=== PATIENT | male | born 1955 | race Hispanic/Latino ===

== ENCOUNTER 2017-02-23 17:42 | Emergency (ER) | payer OTHER ==
[2017-02-23 19:19] LABS: Basophils % (Auto) 0.7 % (0.0-1.8); Eosinophils % (Auto) 1.3 % (0.0-4.3); Hematocrit 47.8 % (35.5-45.6); Hemoglobin 16.1 gm/dl (11.8-15.2); Mean Corpuscular HGB Conc 34 % (32-34); Mean Corpuscular Hemoglobin 32 pg (28-32); Mean Corpuscular Volume 96 fl (84-94); Platelet Count 212 K/mm3 (140-440); Red Blood Count 4.99 M/mm3 (3.65-5.03); Red Cell Distribution Width 13.9 % (13.2-15.2); White Blood Count 7.9 K/mm3 (4.5-11.0)
[2017-02-23 19:43] LABS: Alanine Aminotransferase 26 units/L (7-56); Albumin 3.8 g/dL (3.9-5); Alkaline Phosphatase 84 units/L (35-129); Anion Gap 24 mmol/L; BUN/Creatinine Ratio 5; Blood Urea Nitrogen 3 mg/dL (9-20); Calcium 8.7 mg/dL (8.4-10.2); Carbon Dioxide 20 mmol/L (22-30); Chloride 94.5 mmol/L (98-107); Glucose 92 mg/dL (75-100); Potassium 3.6 mmol/L (3.6-5.0); Sodium 135 mmol/L (137-145); Total Protein 7.5 g/dL (6.3-8.2)
[2017-02-23] MEDS ORDERED: NACL 0.9% 1000 ML 1,000 ML IV ONE ×2 (20:19→22:56)
--- NOTE | 2017-02-23 20:23 | Emergency Department Report ---
ED Altered Mental Status HPI - General Chief Complaint: Altered Mental Status Stated Complaint: ETOH Time Seen by Provider: 02/23/17 20:13 Source: EMS Mode of arrival: Ambulatory Limitations: Altered Mental Status - History of Present Illness Initial Comments: Patient is 61 years old male brought by EMS as an altered mental status, patient had history of alcohol abuse and drug abuse. Patient brought from home. Patient has similar presentation last year. Unable to get more history due to patient altered mental status. MD Complaint: altered mental status, confusion, decreased responsiveness, intoxication -: unknown Severity: moderate Context: alcohol abuse, drug abuse, history of similar presen Associated Symptoms: denies other symptoms - Related Data Home Medications Medication Instructions Recorded Confirmed Last Taken No Known Home Medications [No 12/24/15 12/24/15 Unknown Reported Home Medications] Allergies Allergy/AdvReac Type Severity Reaction Status Date / Time No Known Allergies Allergy Verified 12/23/15 17:27 ED Review of Systems ROS: Stated complaint: ETOH Other details as noted in HPI Comment: Unobtainable due to pts medical conditions ED Past Medical Hx - Past Medical History Previous Medical History?: Yes Hx Hypertension: Yes Additional medical history: unknown - Surgical History Past Surgical History?: No Additional Surgical History: unknown - Social History Smoking Status: Unknown if ever smoked Substance Use Type: Alcohol - Medications Home Medications: Home Medications Medication Instructions Recorded Confirmed Last Taken Type No Known Home Medications [No 12/24/15 12/24/15 Unknown History Reported Home Medications] ED Physical Exam - General Limitations: Altered Mental Status General appearance: appears intoxicated, obtunded - Head Head exam: Present: atraumatic, normocephalic, normal inspection - Eye Eye exam: Present: normal appearance, PERRL Pupils: Present: normal accommodation - ENT ENT exam: Present: normal exam, mucous membranes dry, mucous membranes moist - Neck Neck exam: Present: normal inspection, full ROM. Absent: tenderness, meningismus, lymphadenopathy, thyromegaly - Respiratory Respiratory exam: Present: normal lung sounds bilaterally. Absent: respiratory distress, wheezes, rales, rhonchi, stridor, chest wall tenderness, accessory muscle use, decreased breath sounds, prolonged expiratory - Cardiovascular Cardiovascular Exam: Present: regular rate, normal rhythm, normal heart sounds - GI/Abdominal GI/Abdominal exam: Present: soft, normal bowel sounds. Absent: distended, tenderness, guarding, rebound, rigid, organomegaly, mass, bruit, pulsatile mass , hernia - Extremities Exam Extremities exam: Present: normal inspection, full ROM, normal capillary refill - Back Exam Back exam: Present: normal inspection, full ROM. Absent: tenderness, CVA tenderness (R), CVA tenderness (L) - Neurological Exam Neurological exam: Present: altered, CN II-XII intact, reflexes normal - Skin Skin exam: Present: warm, dry, intact ED Course Vital Signs 02/23/17 02/23/17 02/23/17 17:56 18:20 18:28 Temperature 98.4 F Pulse Rate 89 106 H Respiratory 20 18 Rate Blood Pressure 142/97 Blood Pressure [Right] O2 Sat by Pulse 96 100 Oximetry 02/23/17 02/23/17 02/23/17 18:30 18:45 18:52 Temperature 98.4 F Pulse Rate 95 H 89 91 H Respiratory 29 H 25 H 18 Rate Blood Pressure 127/75 127/75 Blood Pressure 139/85 [Right] O2 Sat by Pulse 92 76 L Oximetry 02/23/17 02/23/17 02/23/17 19:00 19:15 19:30 Temperature Pulse Rate 84 75 71 Respiratory 22 16 17 Rate Blood Pressure 136/85 127/75 140/95 Blood Pressure [Right] O2 Sat by Pulse Oximetry 02/23/17 02/23/17 19:45 20:12 Temperature Pulse Rate 73 79 Respiratory 16 Rate Blood Pressure 140/95 Blood Pressure [Right] O2 Sat by Pulse Oximetry - Lab Data Result diagrams: 02/23/17 19:07 02/23/17 19:07 Lab Results 02/23/17 02/23/17 02/23/17 Range/Units 19:07 19:07 19:07 WBC 7.9 (4.5-11.0) K/mm3 RBC 4.99 (3.65-5.03) M/mm3 Hgb 16.1 H (11.8-15.2) gm/dl Hct 47.8 H (35.5-45.6) % MCV 96 H (84-94) fl MCH 32 (28-32) pg MCHC 34 (32-34) % RDW 13.9 (13.2-15.2) % Plt Count 212 (140-440) K/mm3 Lymph % (Auto) 31.7 (13.4-35.0) % Emery % (Auto) 13.9 H (0.0-7.3) % Eos % (Auto) 1.3 (0.0-4.3) % Baso % (Auto) 0.7 (0.0-1.8) % Lymph # 2.5 (1.2-5.4) K/mm3 Emery # 1.1 H (0.0-0.8) K/mm3 Eos # 0.1 (0.0-0.4) K/mm3 Baso # 0.1 (0.0-0.1) K/mm3 Seg Neutrophils % 52.4 (40.0-70.0) % Seg Neutrophils # 4.1 (1.8-7.7) K/mm3 Sodium 135 L (137-145) mmol/L Potassium 3.6 (3.6-5.0) mmol/L Chloride 94.5 L (98-107) mmol/L Carbon Dioxide 20 L (22-30) mmol/L Anion Gap 24 mmol/L BUN 3 L (9-20) mg/dL Creatinine 0.6 L (0.8-1.5) mg/dL Estimated GFR > 60 ml/min BUN/Creatinine Ratio 5 % Glucose 92 (75-100) mg/dL POC Glucose (70-105) Lactic Acid 3.30 H* (0.7-2.0) mmol/L Calcium 8.7 (8.4-10.2) mg/dL Magnesium 2.20 (1.7-2.3) mg/dL Total Bilirubin 0.30 (0.1-1.2) mg/dL AST 45 H (5-40) units/L ALT 26 (7-56) units/L Alkaline Phosphatase 84 (35-129) units/L Total Protein 7.5 (6.3-8.2) g/dL Albumin 3.8 L (3.9-5) g/dL Albumin/Globulin Ratio 1.0 % TSH (0.270-4.200) mlU/mL Urine Color (Yellow) Urine Turbidity (Clear) Urine pH (5.0-7.0) Ur Specific [place] (1.003-1.030) Urine Protein (Negative) mg/dL Urine Glucose (UA) (Negative) mg/dL Urine Ketones (Negative) mg/dL Urine Blood (Negative) Urine Nitrite (Negative) Urine Bilirubin (Negative) Urine Urobilinogen (<2.0) mg/dL Ur Leukocyte Esterase (Negative) Urine WBC (Auto) (0.0-6.0) /HPF Urine RBC (Auto) (0.0-6.0) /HPF Urine Bacteria (Auto) (Negative) /HPF Hyaline Casts /LPF Salicylates (2.8-20.0) mg/dL Urine Opiates Screen Urine Methadone Screen Acetaminophen (10.0-30.0) ug/mL Ur Barbiturates Screen Ur Phencyclidine Scrn Ur Amphetamines Screen U Benzodiazepines Scrn Urine Cocaine Screen U Marijuana (THC) Screen Drugs of Abuse Note Plasma/Serum Alcohol (0-0.07) gm% 02/23/17 02/23/17 02/23/17 Range/Units 19:07 19:07 19:07 WBC (4.5-11.0) K/mm3 RBC (3.65-5.03) M/mm3 Hgb (11.8-15.2) gm/dl Hct (35.5-45.6) % MCV (84-94) fl MCH (28-32) pg MCHC (32-34) % RDW (13.2-15.2) % Plt Count (140-440) K/mm3 Lymph % (Auto) (13.4-35.0) % Emery % (Auto) (0.0-7.3) % Eos % (Auto) (0.0-4.3) % Baso % (Auto) (0.0-1.8) % Lymph # (1.2-5.4) K/mm3 Emery # (0.0-0.8) K/mm3 Eos # (0.0-0.4) K/mm3 Baso # (0.0-0.1) K/mm3 Seg Neutrophils % (40.0-70.0) % Seg Neutrophils # (1.8-7.7) K/mm3 Sodium (137-145) mmol/L Potassium (3.6-5.0) mmol/L Chloride (98-107) mmol/L Carbon Dioxide (22-30) mmol/L Anion Gap mmol/L BUN (9-20) mg/dL Creatinine (0.8-1.5) mg/dL Estimated GFR ml/min BUN/Creatinine Ratio % Glucose (75-100) mg/dL POC Glucose (70-105) Lactic Acid (0.7-2.0) mmol/L Calcium (8.4-10.2) mg/dL Magnesium (1.7-2.3) mg/dL Total Bilirubin (0.1-1.2) mg/dL AST (5-40) units/L ALT (7-56) units/L Alkaline Phosphatase (35-129) units/L Total Protein (6.3-8.2) g/dL Albumin (3.9-5) g/dL Albumin/Globulin Ratio % TSH 1.260 (0.270-4.200) mlU/mL Urine Color (Yellow) Urine Turbidity (Clear) Urine pH (5.0-7.0) Ur Specific [place] (1.003-1.030) Urine Protein (Negative) mg/dL Urine Glucose (UA) (Negative) mg/dL Urine Ketones (Negative) mg/dL Urine Blood (Negative) Urine Nitrite (Negative) Urine Bilirubin (Negative) Urine Urobilinogen (<2.0) mg/dL Ur Leukocyte Esterase (Negative) Urine WBC (Auto) (0.0-6.0) /HPF Urine RBC (Auto) (0.0-6.0) /HPF Urine Bacteria (Auto) (Negative) /HPF Hyaline Casts /LPF Salicylates < 0.3 L (2.8-20.0) mg/dL Urine Opiates Screen Urine Methadone Screen Acetaminophen < 15.0 (10.0-30.0) ug/mL Ur Barbiturates Screen Ur Phencyclidine Scrn Ur Amphetamines Screen U Benzodiazepines Scrn Urine Cocaine Screen U Marijuana (THC) Screen Drugs of Abuse Note Plasma/Serum Alcohol (0-0.07) gm% 02/23/17 02/23/17 02/23/17 Range/Units 19:07 20:42 20:42 WBC (4.5-11.0) K/mm3 RBC (3.65-5.03) M/mm3 Hgb (11.8-15.2) gm/dl Hct (35.5-45.6) % MCV (84-94) fl MCH (28-32) pg MCHC (32-34) % RDW (13.2-15.2) % Plt Count (140-440) K/mm3 Lymph % (Auto) (13.4-35.0) % Emery % (Auto) (0.0-7.3) % Eos % (Auto) (0.0-4.3) % Baso % (Auto) (0.0-1.8) % Lymph # (1.2-5.4) K/mm3 Emery # (0.0-0.8) K/mm3 Eos # (0.0-0.4) K/mm3 Baso # (0.0-0.1) K/mm3 Seg Neutrophils % (40.0-70.0) % Seg Neutrophils # (1.8-7.7) K/mm3 Sodium (137-145) mmol/L Potassium (3.6-5.0) mmol/L Chloride (98-107) mmol/L Carbon Dioxide (22-30) mmol/L Anion Gap mmol/L BUN (9-20) mg/dL Creatinine (0.8-1.5) mg/dL Estimated GFR ml/min BUN/Creatinine Ratio % Glucose (75-100) mg/dL POC Glucose (70-105) Lactic Acid (0.7-2.0) mmol/L Calcium (8.4-10.2) mg/dL Magnesium (1.7-2.3) mg/dL Total Bilirubin (0.1-1.2) mg/dL AST (5-40) units/L ALT (7-56) units/L Alkaline Phosphatase (35-129) units/L Total Protein (6.3-8.2) g/dL Albumin (3.9-5) g/dL Albumin/Globulin Ratio % TSH (0.270-4.200) mlU/mL Urine Color Yellow (Yellow) Urine Turbidity Clear (Clear) Urine pH 6.0 (5.0-7.0) Ur Specific [place] 1.004 (1.003-1.030) Urine Protein 100 mg/dl (Negative) mg/dL Urine Glucose (UA) Neg (Negative) mg/dL Urine Ketones Neg (Negative) mg/dL Urine Blood Sm (Negative) Urine Nitrite Neg (Negative) Urine Bilirubin Neg (Negative) Urine Urobilinogen < 2.0 (<2.0) mg/dL Ur Leukocyte Esterase Neg (Negative) Urine WBC (Auto) 1.0 (0.0-6.0) /HPF Urine RBC (Auto) 1.0 (0.0-6.0) /HPF Urine Bacteria (Auto) 1+ (Negative) /HPF Hyaline Casts 1 /LPF Salicylates (2.8-20.0) mg/dL Urine Opiates Screen Presumptive negative Urine Methadone Screen Presumptive negative Acetaminophen (10.0-30.0) ug/mL Ur Barbiturates Screen Presumptive negative Ur Phencyclidine Scrn Presumptive negative Ur Amphetamines Screen Presumptive negative U Benzodiazepines Scrn Presumptive positive Urine Cocaine Screen Presumptive negative U Marijuana (THC) Screen Presumptive negative Drugs of Abuse Note Disclamer Plasma/Serum Alcohol 0.41 H (0-0.07) gm% 02/23/17 02/23/17 Range/Units 20:56 21:58 WBC (4.5-11.0) K/mm3 RBC (3.65-5.03) M/mm3 Hgb (11.8-15.2) gm/dl Hct (35.5-45.6) % MCV (84-94) fl MCH (28-32) pg MCHC (32-34) % RDW (13.2-15.2) % Plt Count (140-440) K/mm3 Lymph % (Auto) (13.4-35.0) % Emery % (Auto) (0.0-7.3) % Eos % (Auto) (0.0-4.3) % Baso % (Auto) (0.0-1.8) % Lymph # (1.2-5.4) K/mm3 Emery # (0.0-0.8) K/mm3 Eos # (0.0-0.4) K/mm3 Baso # (0.0-0.1) K/mm3 Seg Neutrophils % (40.0-70.0) % Seg Neutrophils # (1.8-7.7) K/mm3 Sodium (137-145) mmol/L Potassium (3.6-5.0) mmol/L Chloride (98-107) mmol/L Carbon Dioxide (22-30) mmol/L Anion Gap mmol/L BUN (9-20) mg/dL Creatinine (0.8-1.5) mg/dL Estimated GFR ml/min BUN/Creatinine Ratio % Glucose (75-100) mg/dL POC Glucose 79 (70-105) Lactic Acid 3.20 H* (0.7-2.0) mmol/L Calcium (8.4-10.2) mg/dL Magnesium (1.7-2.3) mg/dL Total Bilirubin (0.1-1.2) mg/dL AST (5-40) units/L ALT (7-56) units/L Alkaline Phosphatase (35-129) units/L Total Protein (6.3-8.2) g/dL Albumin (3.9-5) g/dL Albumin/Globulin Ratio % TSH (0.270-4.200) mlU/mL Urine Color (Yellow) Urine Turbidity (Clear) Urine pH (5.0-7.0) Ur Specific [place] (1.003-1.030) Urine Protein (Negative) mg/dL Urine Glucose (UA) (Negative) mg/dL Urine Ketones (Negative) mg/dL Urine Blood (Negative) Urine Nitrite (Negative) Urine Bilirubin (Negative) Urine Urobilinogen (<2.0) mg/dL Ur Leukocyte Esterase (Negative) Urine WBC (Auto) (0.0-6.0) /HPF Urine RBC (Auto) (0.0-6.0) /HPF Urine Bacteria (Auto) (Negative) /HPF Hyaline Casts /LPF Salicylates (2.8-20.0) mg/dL Urine Opiates Screen Urine Methadone Screen Acetaminophen (10.0-30.0) ug/mL Ur Barbiturates Screen Ur Phencyclidine Scrn Ur Amphetamines Screen U Benzodiazepines Scrn Urine Cocaine Screen U Marijuana (THC) Screen Drugs of Abuse Note Plasma/Serum Alcohol (0-0.07) gm% - EKG Data -: EKG Interpreted by Me Interpretation: no acute changes - Radiology Data Radiology results: report reviewed Referring Physician: TOI PRESTON Patient Name: JUAN MONTERO Date of : 1955 Sex: Male Report Date: 2017-02-23 Report Status: Finalized Findings [facility] [address] [place] [address] Cat Scan Report Signed Patient: JUAN MONTERO MR#: [id number] : 1955 Acct:[id number] Age/Sex: 61 / M ADM Date: 02/23/17 Loc: ED Attending Dr: Ordering Physician: TOI PRESTON Date of Service: 02/23/17 Procedure(s): CT head/brain wo con Accession Number(s): [id number] cc: TOI PRESTON FINAL REPORT PROCEDURE: CT HEAD/BRAIN WO CON TECHNIQUE: Computerized tomography of the head was performed without contrast material. HISTORY: AMS COMPARISON: No prior studies are available for comparison. FINDINGS: Skull and scalp: Normal. Paranasal sinuses: Normal. Ventricles and subarachnoid spaces: There is mild central and cortical atrophy. There is no hydrocephalus or asymmetry.. Cerebrum: No evidence of hemorrhage, acute infarction or mass. There is chronic deep white matter ischemic gliosis. Cerebellum and brainstem: No evidence of hemorrhage, acute infarction or mass. Vasculature: There is calcified plaque in the cavernous internal carotid arteries.. Comments: None. IMPRESSION: There are chronic involutional changes. There is no hemorrhage, edema, mass, mass effect or midline shift. Transcribed By: CO Dictated By: HAYLEE GRAY MD Electronically Authenticated By: HAYLEE GRAY MD Signed Date/Time: 02/23/171818 DD/ 18 TD/TT: 02/23/171818 Critical care attestation.: If time is entered above; I have spent that time in minutes in the direct care of this critically ill patient, excluding procedure time. ED Disposition Clinical Impression: Altered mental status, Alcohol intoxication Disposition: DC-01 TO HOME OR SELFCARE Is pt being admited?: No Condition: Stable Referrals: PRIMARY CAREMD [Primary Care Provider] - 3-5 Days
[2017-02-23 20:47] LABS: Urine Drugs of Abuse Note Disclamer
[2017-02-23 20:59] LABS: Bacteria,Urine 1+ /HPF (Negative); Bilirubin,Urine NEG (Negative); Blood,Urine SM (Negative); Ketones,Urine NEG (Negative); Leukocyte Esterase,Urine NEG (Negative); Nitrite,Urine NEG (Negative); Urobilinogen,Urine < 2.0 mg/dL (<2.0)
--- NOTE | 2017-02-23 22:22 | Cat Scan Report ---
FINAL REPORT PROCEDURE: CT HEAD/BRAIN WO CON TECHNIQUE: Computerized tomography of the head was performed without contrast material. HISTORY: AMS COMPARISON: No prior studies are available for comparison. FINDINGS: Skull and scalp: Normal. Paranasal sinuses: Normal. Ventricles and subarachnoid spaces: There is mild central and cortical atrophy. There is no hydrocephalus or asymmetry.. Cerebrum: No evidence of hemorrhage, acute infarction or mass. There is chronic deep white matter ischemic gliosis. Cerebellum and brainstem: No evidence of hemorrhage, acute infarction or mass. Vasculature: There is calcified plaque in the cavernous internal carotid arteries.. Comments: None. IMPRESSION: There are chronic involutional changes. There is no hemorrhage, edema, mass, mass effect or midline shift.
[2017-02-24] MEDS ORDERED: NACL 0.9% 1000 ML 1,000 ML IV ONE (06:01)
[2017-02-24 07:53] VITALS: BP 157/93
== END 2017-02-24 09:27 | disposition home or self-care (01) ==
LOC: ED 17:42
DX: F10.129 Alcohol abuse with intoxication, unspecified (principal); R41.82 Altered mental status, unspecified; I10 Essential (primary) hypertension
CPT/HCPCS: 36415; 70450; 80053; 80307; 81001; 82140; 82962; 83735; 84443; 85025; 93005; 93010; 96360; 96361; 99285; G0480; J7030; 80320

== ENCOUNTER 2017-06-14 17:56 | Emergency (ER) | payer SELFPAY ==
--- NOTE | 2017-06-14 21:15 | Emergency Department Report ---
ED General Adult HPI - General Chief complaint: Skin/Abscess/Foreign Body Stated complaint: INSECT BITE Time Seen by Provider: 06/14/17 20:28 Source: patient, family Mode of arrival: Ambulatory Limitations: No Limitations - History of Present Illness Initial comments: Patient reported that he is insect bite to his left fifth and fourth finger causing tightness and swelling. He said this happened 2 weeks ago. He said he also needs a refill on medication which happens to be lorazepam he has empty bottle. Patient blood pressure was elevated at 169/119 and he has his Hyzaar with him which he says that he just took after his blood pressure was taken in triage. Denies any chest pain or shortness of breath. Denies any neck pain or stiffness. Denies any dizziness, headache or numbness or tingling to extremities. Denies any back pain or abdominal pain. Pain to fingers of left hand 9 out of 10 and a can. Forced movement better with rest. Over-the- counter pain medication taken without any relief. Patient said it's getting red and sore. Past medical history of hypertension and alcohol abuse which he said he does not drink alcohol anymore. Patient is on lorazepam because he says he cannot sleep and he has anxiety. Patient doctor is Dr. Jerardo Sousa. He said he ran out of lorazepam 5 days ago and has an appointment with Dr. Sousa but he is shaky and very anxious and would need something to help him. MD Complaint: insect bite to left hand, medication refill Onset/Timin -: week(s) Location: left, upper extremity (fourth and fifth digits of left hand) Radiation: non-radiation Severity scale (0 -10): 9 Quality: aching Consistency: intermittent Improves with: immobilization, rest Worsens with: movement Associated Symptoms: other (anxiety). denies: confusion, chest pain, cough, diaphoresis, fever/chills, headaches, loss of appetite, malaise, nausea/vomiting , rash, seizure, shortness of breath, syncope, weakness Treatments Prior to Arrival: NSAID - Related Data Previous Rx's Medication Instructions Recorded Last Taken Type Cephalexin [Keflex] 500 mg PO Q8H 7 Days #21 capsule 06/14/17 Unknown Rx LORazepam [Ativan] 1 mg PO QHS PRN #6 tab 06/14/17 Unknown Rx Allergies Allergy/AdvReac Type Severity Reaction Status Date / Time No Known Allergies Allergy Verified 12/23/15 17:27 ED Review of Systems ROS: Stated complaint: INSECT BITE Other details as noted in HPI Comment: All other systems reviewed and negative Constitutional: no symptoms reported Eyes: denies: eye pain, vision change ENT: denies: ear pain, throat pain, dental pain, epistaxis, congestion Respiratory: no symptoms reported Cardiovascular: denies: chest pain, palpitations, dyspnea on exertion, edema, syncope, paroxysmal nocturnal dyspnea Gastrointestinal: denies: abdominal pain, nausea, vomiting, diarrhea, constipation Genitourinary: denies: dysuria, hematuria Musculoskeletal: denies: back pain, joint swelling, arthralgia, myalgia Skin: other (inset bite to fingers of left hand with redness and swelling) Neurological: denies: headache, weakness, numbness, paresthesias, confusion, abnormal gait, vertigo Psychiatric: anxiety ED Past Medical Hx - Past Medical History Previous Medical History?: Yes Hx Hypertension: Yes Additional medical history: alcohol abuse - Surgical History Past Surgical History?: Yes Additional Surgical History: unknown - Family History Family history: hypertension - Social History Smoking Status: Never Smoker Substance Use Type: Alcohol - Medications Home Medications: Home Medications Medication Instructions Recorded Confirmed Last Taken Type Cephalexin [Keflex] 500 mg PO Q8H 7 Days #21 capsule 06/14/17 Unknown Rx LORazepam [Ativan] 1 mg PO QHS PRN #6 tab 06/14/17 Unknown Rx ED Physical Exam - General Limitations: No Limitations General appearance: alert, in no apparent distress - Head Head exam: Present: atraumatic, normocephalic, normal inspection, other (normal exam) - Eye Eye exam: Present: normal appearance, PERRL, EOMI. Absent: nystagmus, periorbital swelling, periorbital tenderness Pupils: Present: normal accommodation - ENT ENT exam: Present: normal exam, normal orophraynx, mucous membranes moist, TM's normal bilaterally, normal external ear exam - Neck Neck exam: Present: normal inspection, full ROM, other (no C-spine tenderness). Absent: tenderness, meningismus, lymphadenopathy - Respiratory Respiratory exam: Present: normal lung sounds bilaterally. Absent: respiratory distress, chest wall tenderness - Cardiovascular Cardiovascular Exam: Present: regular rate, normal rhythm, normal heart sounds. Absent: systolic murmur, diastolic murmur - GI/Abdominal GI/Abdominal exam: Present: soft, normal bowel sounds. Absent: distended, tenderness, guarding, rebound, rigid, organomegaly, mass, bruit, pulsatile mass , hernia - Extremities Exam Extremities exam: Present: normal inspection, full ROM, tenderness (Aruna to palpate at the left fourth and fifth digits fingers), normal capillary refill, pedal edema, calf tenderness, other (clubbing, cyanosis or edema. Positive pulses all extremities. No neurovascular compromise. No restriction in movement to fingers of right or left hand.) - Back Exam Back exam: Present: normal inspection, full ROM, other (ambulates without any difficulties). Absent: tenderness, CVA tenderness (R), CVA tenderness (L), muscle spasm, paraspinal tenderness, vertebral tenderness, rash noted - Neurological Exam Neurological exam: Present: alert, oriented X3, normal gait, reflexes normal. Absent: motor sensory deficit - Psychiatric Psychiatric exam: Present: anxious (mild anxiety) - Skin Skin exam: Present: warm, dry, intact, rash, erythema, other (mild cellulitis to left hand and fourth and fifth digits proximally. Very superficial.) - Expanded Skin Exam Expanded Type of lesion: Present: rash (cellulitis), bite/sting Distribution of rash: LUE (left fourth and fifth fingers) Description of rash: Present: tenderness, erythematous, swelling. Absent: crusting, discharge, fluctuant, indurated ED Course Vital Signs 06/14/17 06/14/17 18:13 22:01 Temperature 98.2 F Pulse Rate 94 H Respiratory 18 Rate Blood Pressure 169/119 Blood Pressure 160/100 [Left] O2 Sat by Pulse 97 Oximetry - Reevaluation(s) Reevaluation #1: 06/14/17 22:09 Patient received Ativan 2 mg by mouth in the emergency room which he said he felt better. He has prescription bottle for 2 mg twice a day. Which he said he only takes at bedtime ED Medical Decision Making - Medical Decision Making ED course: Pt here for refill on his lorazepam. He sees Dr. Jerardo Sousa for primary care and studies been out of his lorazepam for 5 days and he is feeling a little nervous and cannot sleep. He was given lorazepam 2 mg emergency room by mouth which helped. He took his Hyzaar in triage area and his blood pressure is not on to 160/100 he remained asymptomatic with elevated blood pressure. I discussed with him he needs to keep log of his blood pressure and take to primary care physician office and that I could only give him 6 tablets of Ativan at 1 mg dose. Prescription bottle is up-to-date. Patient also with mild cellulitis to left upper extremity to fourth and fifth fingers. I discussed diagnosis and treatment plan the patient and he voiced understanding and discharged home with his family prescription for lorazepam No. 6 and Keflex. Critical care attestation.: If time is entered above; I have spent that time in minutes in the direct care of this critically ill patient, excluding procedure time. ED Disposition Clinical Impression: Anxiety, Elevated blood-pressure reading without diagnosis of hypertension, Cellulitis of finger of left hand, Finger pain, left Insect bite Qualifiers: Encounter type: initial encounter Qualified Code(s): W57.XXXA - Bitten or stung by nonvenomous insect and other nonvenomous arthropods, initial encounter Disposition: - TO HOME OR SELFCARE Is pt being admited?: No Does the pt Need Aspirin: No Condition: Stable Instructions: Anxiety (ED), Chronic Hypertension (ED), Cellulitis (ED), Insect Bite or Sting (ED) Additional Instructions: keep a log of the blood pressure and take to primary care visit with [facility] for evaluation Take Keflex for cellulitis from insect bite. Follow-up primary care physician Dr. Jerardo Griffith in 2 days. Call tomorrow to schedule an appointment do not take lorazepam while driving or operating heavy machinery as this medication causes drowsiness Prescriptions: LORazepam [Ativan] 1 mg PO QHS PRN #6 tab PRN Reason: Anxiety Cephalexin [Keflex] 500 mg PO Q8H 7 Days #21 capsule Referrals: Your, primary care physician [Other] - 06/16/17 [facility] [Outside] - 06/16/17 Forms: Accompanied Note, Work/School Release Form(ED)
[2017-06-14] MEDS ORDERED: ATIVAN PO ONE (21:16)
[2017-06-14 22:06] VITALS: BP 160/100
== END 2017-06-14 22:30 | disposition home or self-care (01) ==
LOC: ED 17:56
DX: L03.012 Cellulitis of left finger (principal); F41.9 Anxiety disorder, unspecified; I10 Essential (primary) hypertension; W57.XXXA Bitten or stung by nonvenomous insect and other nonvenomous arthropods, initial encounter; Y93.89 Activity, other specified; Y99.8 Other external cause status; Y92.89 Other specified places as the place of occurrence of the external cause
CPT/HCPCS: 99282